=== PATIENT | female | born 1975 | race Caucasian/White ===

== ENCOUNTER 2023-12-24 23:55 | Inpatient (IN) | payer BC ==
[~2023-12-24] VITALS: Ht 160 cm; Wt 99.8 kg
[2023-12-25 00:01] VITALS: BP_SYST 118; PULSE 98; RESP 20; TEMP 97.9; O2SAT 97
[2023-12-25] MEDS: FAMOTIDINE PF 20 MG/2 ML VIAL IVP ONE (00:52)
[2023-12-25] MEDS: ONDANSETRON HCL 4 MG/2 ML VIAL IVP ONE ×2 (00:52→02:12)
[2023-12-25] MEDS: MORPHINE 4 MG INJ. 4 MG/ML VIAL IVP ONE ×2 (00:53→02:10)
[2023-12-25] MEDS: NACL 0.9% 1,000 ML IV ONE ×2 (00:54→06:05)
[2023-12-25 01:12] LABS: BILIRUBIN,URINE NEGATIVE (NEGATIVE); BLOOD, URINE NEGATIVE (NEGATIVE); CLARITY/URINE CLEAR (CLEAR); COLOR,URINE YELLOW (YELLOW); GLUCOSE,URINE NEGATIVE (NEGATIVE); KETONES,URINE NEGATIVE (NEGATIVE); LEUKOCYTE ESTERASE ,URINE NEGATIVE (NEGATIVE); NITRITE, URINE NEGATIVE (NEGATIVE); PROTEIN URINE NEGATIVE (NEGATIVE); UROBILINOGEN,URINE 0.2 (0.2-1.0)
[2023-12-25 01:41] LABS: CALCIUM 9.3 mg/dL (8.4-11.0); CREATININE 0.79 mg/dL (0.55-1.30); POTASSIUM 4.2 mmol/L (3.5-5.1)
[2023-12-25 01:45] LABS: BASOPHILS % (AUTO) 0.5 % (0.0-2.0); EOSINOPHILS # (AUTO) 0.1 K/uL (0.0-0.4); EOSINOPHILS % (AUTO) 1.3 % (0.0-4.0); HEMATOCRIT 36.3 % (36-48); HEMOGLOBIN 12.3 g/dL (12.0-16.0); LYMPHOCYTES # (AUTO) 1.2 K/uL (1.0-5.5); LYMPHOCYTES % (AUTO) 13.3 % (20.5-51.5); MEAN CORPUSCULAR HEMOGLOBIN 29 pg (27-31); MEAN CORPUSCULAR HGB CONC 34 % (32-36); MEAN CORPUSCULAR VOLUME 86 fL (79.0-98.0); MONOCYTES # (AUTO) 0.4 K/uL (0.0-1.0); MONOCYTES % (AUTO) 4.2 % (1.7-9.3); NEUTROPHILS # (AUTO) 7.3 K/uL (1.8-7.7); NEUTROPHILS % (AUTO) 80.7 % (40.0-70.0); PLATELET COUNT (AUTO) 235 K/uL (130-430); RED BLOOD CELL COUNT(AUTO) 4.23 MIL/uL (4.2-6.2); RED CELL DISTRIBUTION WIDTH 14.9 % (9.0-15.0)
[2023-12-25 01:46] LABS: ALBUMIN 3.3 g/dL (3.4-4.8); TOTAL BILIRUBIN 0.3 mg/dL (0.0-1.0); TOTAL PROTEIN, SERUM 7.1 g/dL (6.4-8.3)
[2023-12-25] MEDS ORDERED: PIPERACILLIN/TAZOBACTAM 3.375 GM/VIAL (ZOSYN) IV ONE ×2 (05:44→09:10)
[2023-12-25] MEDS: PIPERACILLIN/TAZO 3.375 GM in NS 50 ML IV ONE (06:03)
[2023-12-25] MEDS: D5NS 1,000 ML IV SCH (06:04)
[2023-12-25] MEDS: PIPERACILLIN/TAZO 3.375 GM in NS 50 ML IV SCH (07:30)
[2023-12-25] MEDS ORDERED: MUPIROCIN 2% TOPICAL OINTMENT 22 GM NS PRN (08:30)
[2023-12-25] MEDS ORDERED: MORPHINE 2 MG/ML INJ. SYRINGE IVP PRN ×2 (08:30)
[2023-12-25] MEDS ORDERED: NALOXONE HCL 0.4 MG/ML AMP (NARCAN) IVP PRN ×4 (08:30→19:45)
[2023-12-25] MEDS ORDERED: MAGNESIUM SULFATE 50 ML IV PRN (08:30)
[2023-12-25] MEDS ORDERED: ONDANSETRON HCL 4 MG/2 ML VIAL IVP PRN ×3 (08:30→19:45)
[2023-12-25] MEDS ORDERED: LORazepam 2 MG/ML VIAL IVP PRN (08:30)
[2023-12-25] MEDS ORDERED: DOCUSATE SODIUM 100 MG CAPSULE PO PRN (08:30)
[2023-12-25] MEDS ORDERED: ACETAMINOPHEN 325 MG TABLET PO PRN (08:30)
[2023-12-25] MEDS ORDERED: POTASSIUM CHLORIDE 20 MEQ TABLET.ER PO PRN (08:30)
[2023-12-25 12:00] VITALS: BP_SYST 121; PULSE 90; RESP 16; TEMP 99.5; O2SAT 99
[2023-12-25] MEDS: MORPHINE 2 MG/ML INJ. SYRINGE IVP PRN (12:09)
[2023-12-25] MEDS: ONDANSETRON HCL 4 MG/2 ML VIAL IVP PRN (12:10)
[2023-12-25 16:00] VITALS: BP_SYST 118; PULSE 80; RESP 18; TEMP 98.9; O2SAT 100
[2023-12-25 17:36] VITALS: BP_SYST 121; PULSE 90; RESP 16; TEMP 99.5
[2023-12-25] MEDS ORDERED: HYDROmorphone 1 MG/ML INJ. CARTRIDGE IVP PRN ×2 (18:15→19:45)
[2023-12-25] MEDS ORDERED: KETOROLAC TROMETHAMINE 30 MG VIAL ONE (19:40)
[2023-12-25] MEDS ORDERED: ONDANSETRON HCL 4 MG/2 ML VIAL ONE (19:40)
[2023-12-25] MEDS ORDERED: PROPOFOL 200MG/ 20ML VIAL (DIPRIVAN) IV ONE (19:40)
[2023-12-25] MEDS ORDERED: SEVOFLURANE 15 MIN GAS INH ONE (19:40)
[2023-12-25] MEDS ORDERED: fentaNYL CITRATE/PF 100 MCG/2 ML AMP ONE (19:40)
[2023-12-25] MEDS ORDERED: LIDOCAINE/EPI 1% 1:100000 20 ML VIAL ONE (19:40)
[2023-12-25] MEDS ORDERED: GLYCOPYRROLATE 0.2 MG/ML VIAL ONE (19:40)
[2023-12-25] MEDS ORDERED: WATER FOR IRRIGATION,STERILE 1,000 ML IRRIG.SOLN IR ONE (19:40)
[2023-12-25] MEDS ORDERED: D5/0.45 NS 1,000 ML IV.SOLN IV ONE (19:40)
[2023-12-25] MEDS ORDERED: ROCURONIUM BROMIDE 10 MG/ML (ZEMURON) ONE (19:40)
[2023-12-25] MEDS ORDERED: DEXAMETHASONE SOD PHOSPHATE 4 MG/ML VIAL ONE (19:40)
[2023-12-25] MEDS ORDERED: NEOSTIGMINE METHYLSULFATE 1 MG/ML, 10 ML VIAL ONE (19:40)
[2023-12-25] MEDS ORDERED: NS 1000 ML IV.SOLN IV ONE (19:40)
[2023-12-25] MEDS ORDERED: METOCLOPRAMIDE HCL 10 MG/2 ML VIAL ONE (19:40)
[2023-12-25] MEDS ORDERED: MIDAZOLAM HCL 5 MG/ML VIAL (VERSED) IV ONE (19:40)
[2023-12-25] MEDS ORDERED: MEPERIDINE HCL/PF 25 MG/ML DISP.SYRIN IVP PRN (19:45)
[2023-12-25] MEDS ORDERED: KETOROLAC TROMETHAMINE 30 MG VIAL IVP PRN (19:45)
[2023-12-25 21:00] VITALS: BP_SYST 127; PULSE 70; RESP 18; TEMP 98.5; O2SAT 99
[2023-12-25] MEDS: CEFAZOLIN 2 GM IVPB PREMIX 50 ML IV SCH (21:00)
[2023-12-25] MEDS: LR 1,000 ML IV SCH (21:30)
[2023-12-26 00:24] VITALS: BP_SYST 117; PULSE 89; RESP 18; TEMP 98; O2SAT 96
[2023-12-26] MEDS ORDERED: KETOROLAC TROMETHAMINE 15 MG VIAL IVP PRN (02:00)
[2023-12-26] MEDS: CEFAZOLIN 2 GM IVPB PREMIX 50 ML IV ONE (06:16)
[2023-12-26] MEDS: D5/0.45 NS 1,000 ML IV SCH (07:00)
[2023-12-26 07:42] LABS: BASOPHILS % (AUTO) 0.1 % (0.0-2.0); HEMATOCRIT 30.8 % (36-48); HEMOGLOBIN 10.5 g/dL (12.0-16.0); LYMPHOCYTES # (AUTO) 0.8 K/uL (1.0-5.5); LYMPHOCYTES % (AUTO) 11.4 % (20.5-51.5); MEAN CORPUSCULAR HEMOGLOBIN 29 pg (27-31); MEAN CORPUSCULAR HGB CONC 34 % (32-36); MEAN CORPUSCULAR VOLUME 86 fL (79.0-98.0); MONOCYTES # (AUTO) 0.4 K/uL (0.0-1.0); MONOCYTES % (AUTO) 5.1 % (1.7-9.3); NEUTROPHILS % (AUTO) 83.4 % (40.0-70.0); PLATELET COUNT (AUTO) 231 K/uL (130-430); RED CELL DISTRIBUTION WIDTH 14.6 % (9.0-15.0); WHITE BLOOD COUNT (AUTO) 7.1 K/uL (4.8-10.8)
[2023-12-26 08:06] LABS: ALBUMIN 2.5 g/dL (3.4-4.8); CALCIUM 8.1 mg/dL (8.4-11.0); CREATININE 0.67 mg/dL (0.55-1.30); TOTAL BILIRUBIN 0.3 mg/dL (0.0-1.0); TOTAL PROTEIN, SERUM 5.9 g/dL (6.4-8.3)
[2023-12-26] MEDS ORDERED: HYDR-3917 PO (08:28)
[2023-12-26] MEDS: ACETAMINOPHEN 325 MG TABLET PO PRN (12:38)
[2023-12-26 12:46] VITALS: BP_SYST 125; PULSE 89; RESP 20; TEMP 97.2; O2SAT 95
[2023-12-26] MEDS ORDERED: LEVO750T64 PO ×2 (14:22→20:01)
[2023-12-26 14:30] VITALS: BP_SYST 124; PULSE 80; RESP 18; TEMP 98; O2SAT 95
[2023-12-26 20:37] VITALS: BP_SYST 125; PULSE 74; RESP 20; TEMP 98; O2SAT 98
== END 2023-12-26 19:40 | disposition home or self-care (01) | DRG 418 ==
LOC: SED 23:55 → SMU 12-25 05:21
PROVIDERS: ADMIT General Practice; ATTEND General Practice
PROC: 0WQF4ZZ Repair Abdominal Wall, Percutaneous Endoscopic Approach (ICD-10-PCS; 2023-12-25)
PROC: 0FT44ZZ Resection of Gallbladder, Percutaneous Endoscopic Approach (ICD-10-PCS; principal; 2023-12-25 17:53)
DX: K80.00 Calculus of gallbladder with acute cholecystitis without obstruction (principal); E44.1 Mild protein-calorie malnutrition; K42.0 Umbilical hernia with obstruction, without gangrene; E66.9 Obesity, unspecified; K82.8 Other specified diseases of gallbladder; Z68.39 Body mass index [BMI] 39.0-39.9, adult; Z98.891 History of uterine scar from previous surgery
CPT/HCPCS: 36415; 76376; 76705; 78226; 80048; 80053; 81001; 81003; 83037; 83605; 83690; 83735; 85025; 87040; 99285; A9537; C1727; J0690; J1100; J1885; J2250; J2270; J2405; J2543; J2704; J2710; J2765; J3010; J3490; J7030